=== PATIENT | female | born 1950 | race Caucasian/White ===

== ENCOUNTER 2016-11-23 15:13 | Emergency (ER) | payer BC ==
[2016-11-23] MEDS ORDERED: ONDANSETRON 4 MG ORAL DISINTEGRATING TAB (S0181) As Ordered ONE (16:45)
--- NOTE | 2016-11-23 18:24 | REP ---
CT Head without contrast HISTORY: Head injury COMPARISON: 04/22/2006 There is no intraparenchymal hemorrhage, acute infarct, mass or midline shift. The ventricular system is normal in appearance. There is no extra cerebral collection. There is no fracture. The visualized sinuses are clear. Soft tissue swelling is present over the right parietal bone. IMPRESSION: There is no intracranial lesion. Signed by João Dooley MD 11/23/2016 06:15 P
--- NOTE | 2016-11-23 18:56 | EDDOCDS ---
Nurse's Notes [facility] Name: Julita Potter Age: 65 yrs Sex: Female : 1950 Arrival Date: 11/23/2016 Time: 15:13 Bed TR8 Private MD: Bell Moralez Diagnosis: Unspecified injury of head-ABRASION/CONTUSION;Cervicalgia;Concussion Presentation: 11/23 15:21 Presenting complaint: Patient states: Slipped on ice today at 8am, hit back of head, no dwg LOC, no vomiting. Adult Sepsis Screening: The patient does not have new or worsening altered mentation. Patient's respiratory rate is less than 22. Systolic blood pressure is greater than 100. Patient has a qSOFA score of 0- Negative Sepsis Screen. Suicide/Homicide risk assessment- the patient denies having any suicidal and/or homicidal ideations and does not present with any other emotional, behavioral or mental health complaints. 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 Transition of care: patient was not received from another setting of care. 15:21 Acuity: INGA Level 4 dwg 15:21 Method Of Arrival: Walkin/Carried/Asstd dwg Triage Assessment: 15:24 General: Appears in no apparent distress. Pain: Pain currently is 6 out of 10 on a pain dwg scale. Historical: - Allergies: no known allergies; - Home Meds: 1. duloxetine 30 mg Oral cpDR 1 cap once daily (Last dose: 11/22/2016 20:00) 2. levothyroxine 75 mcg Oral tab 1 tab once daily (Last dose: 11/22/2016 08:00) 3. ranitidine HCl 150 mg Oral tab 1 tab 2 times per day (Last dose: 11/22/2016 17:00) 4. lansoprazole 30 mg oral cpDR 1 cap once daily (Last dose: 11/22/2016 21:00) - PMHx: GERD; Hypothyroidism; Migraines; Seizures; - PSHx: Tubal ligation; - Social history: Smoking status: Patient states former smoker of tobacco. No barriers to communication noted, The patient speaks fluent Montserratian. - Family history: No immediate family members are acutely ill. - : The pt / caregiver states he / she is not on anticoagulants. Home medication list is obtained from the patient. - Exposure Risk Screening:: None identified. Screenin:53 Screening information is obtained from the patient. Fall risk: No risks identified. mb9 Assistance ADL's: requires no assistance with activities of daily living. Abuse/DV Screen: The patient / caregiver reports he/she is: not in a situation that causes fear, pain or injury. Nutritional screening: No deficits noted. Advance Directives: There is no active DNR order. home support is adequate. Assessment: 18:53 General: Appears in no apparent distress, Behavior is appropriate for age, cooperative. mb9 Respiratory: Airway is patent Respiratory effort is even, unlabored. Vital Signs: 15:15 BP 142 / 66; Pulse 84; Resp 18 S; Temp 97.4(O); Pulse Ox 98% on R/A; Weight 52.62 kg gr2 (R); Height 5 ft. 6 in. (167.64 cm) (R); Pain 4/10; 18:42 BP 129 / 66; Pulse 66; Resp 18; Temp 98.8(TE); Pulse Ox 97% on R/A; Pain 8/10; mdr 15:15 Body Mass Index 18.72 (52.62 kg, 167.64 cm) gr2 Vitals: 15:15 Log In Time: November 23, 2016 at 15:15. gr2 ED Course: 15:14 Patient visited by Nehemias Devine. gr2 15:14 Bell Moralez is Private Physician. gr2 15:14 Patient moved to Waiting gr2 15:15 Patient visited by Nehemias Devine. gr2 15:15 Patient moved to Pre RCE gr2 15:22 Triage Initiated dwg 15:54 Patient moved to Triage 2 mb9 16:29 Ebony Matthews PA-C is PHCP. dt4 16:29 Romeo Bardales MD is Attending Physician. dt4 16:30 Patient visited by Ebony Matthews PA-C. dt4 16:47 Patient moved to TR2 srm 16:53 [facility] Payment Agreement was scanned into [employer] and attached to record. gjb 17:02 Patient name changed from Julita\S\\S\Tariq\S\ to Julita\S\ \S\Tariq. EDMS 18:05 PHCP role handed off by Ebony Matthews PA-C ck7 18:05 Rommel Loera RPA-C is PHCP. ck7 18:18 Patient visited by Rommel Loera RPA-C. ck7 18:30 Patient moved to PR1 / 25 mdr 18:43 Patient visited by Candelario Culver PCA. mdr 18:52 Patient moved to TR8 mb9 18:53 The patient / caregiver is instructed regarding the plan of care and ED course. mb9 18:53 No IV's were initiated during this patient's visit. No procedures done that require mb9 assistance. Administered Medications: 16:48 Drug: Ondansetron ODT 4 mg [ondansetron 4 mg disintegrating tablet (1 tabs)] Route: PO; mb9 Order Results: There are currently no results for this order. Outcome: 18:37 Discharge ordered by Provider. ck7 18:53 Discharge Assessment: Patient awake, alert and oriented x 3. No cognitive and/or mb9 functional deficits noted. Patient verbalized understanding of disposition instructions. patient administered narcotics - no. The following High Risk Discharge criteria are identified: None. Discharged to home ambulatory. Condition: good Condition: stable Condition: improved. Discharge instructions given to patient, Instructed on discharge instructions, follow up and referral plans. medication usage, Demonstrated understanding of instructions, medications, Pt was receptive of discharge instructions/ teaching. Prescriptions given X 1, Work note provided to patient. CT Study completed. Property :Personal belongings accompany Pt. 18:55 Patient left the ED. constance9 Signatures: Dispatcher MedHost EDMS Boris Uriarte RN RN dwg Michelson, Staci, RN RN [facility] Rommel Loera RPA-C RPA-Cck7 Nehemias Devine gr2 Ebony Matthews PA-C PA-C dt4 Casey Lynch RN RN mb9 Rick, Mitchell, PCA NEWS WIRE PHOTO OPERATOR Leonor Costello [facility]
--- NOTE | 2016-11-23 18:56 | EDDOCDS ---
Physician Documentation [facility] Name: Julita Potter Age: 65 yrs Sex: Female : 1950 Arrival Date: 11/23/2016 Time: 15:13 Bed TR8 Private MD: Bell Moralez Disposition: 11/23/16 18:37 Discharged to Home/Self Care. Impression: Unspecified injury of head - ABRASION/CONTUSION, Cervicalgia, Concussion. - Condition is Stable. - Discharge Instructions: Concussion, Adult, Head Injury, Adult, Cervical Sprain. - Prescriptions for ZOFRAN ODT 4 mg - dissolve 1 tablet by ORAL route 4 times per day As needed do not chew, do not swallow whole; 10 tablet. - Medication Reconciliation, Local Pharmacy Hours, Work Release Form - 2 day form. - Follow up: Private Physician; When: 1 - 2 days; Reason: Recheck today's complaints, Continuance of care. - Problem is new. - Symptoms have improved. - Notes: USE MEDICATION INSTRUCTED, USE TYLENOL OR MOTRIN FOR PAIN CONTROL, FOLLOW UP WITH YOUR DOCTOR TOMORROW, RETURN TO THE ER IF THE SYMPTOMS WORSEN OR BECOME CONCERNING Historical: - Allergies: no known allergies; - Home Meds: 1. duloxetine 30 mg Oral cpDR 1 cap once daily (Last dose: 11/22/2016 20:00) 2. levothyroxine 75 mcg Oral tab 1 tab once daily (Last dose: 11/22/2016 08:00) 3. ranitidine HCl 150 mg Oral tab 1 tab 2 times per day (Last dose: 11/22/2016 17:00) 4. lansoprazole 30 mg oral cpDR 1 cap once daily (Last dose: 11/22/2016 21:00) - PMHx: GERD; Hypothyroidism; Migraines; Seizures; - PSHx: Tubal ligation; - Social history: Smoking status: Patient states former smoker of tobacco. No barriers to communication noted, The patient speaks fluent Peruvian. - Family history: No immediate family members are acutely ill. - : The pt / caregiver states he / she is not on anticoagulants. Home medication list is obtained from the patient. - Exposure Risk Screening:: None identified. Vital Signs: 11/23 15:15 BP 142 / 66; Pulse 84; Resp 18 S; Temp 97.4(O); Pulse Ox 98% on R/A; Weight 52.62 kg / gr2 116.01 lbs (R); Height 5 ft. 6 in. (167.64 cm) (R); Pain 4/10; 18:42 BP 129 / 66; Pulse 66; Resp 18; Temp 98.8(TE); Pulse Ox 97% on R/A; Pain 8/10; mdr 15:15 Body Mass Index 18.72 (52.62 kg, 167.64 cm) gr2 MDM: 16:43 Ondansetron ODT Oral Disintegrating Tablet 4 mg PO once ordered. dt4 16:44 CT Head Without Contrast Ordered. EDMS 16:44 CT Spine,Cervical W/o Contrast Ordered. EDMS 16:53 [facility] Payment Agreement was scanned into [employer] and attached to record. gjb 16:54 Financial registration complete. gjb Administered Medications: 16:48 Drug: Ondansetron ODT 4 mg [ondansetron 4 mg disintegrating tablet (1 tabs)] Route: PO; mb9 Signatures: Dispatcher [employer] EDMS Boris Uriarte, RN RN dwg Rommel Loera, RPA-C RPA-Cck7 Ebony Matthews PA-C PA-C dt4 Casey LynchRN RN mb9 Leonor Bailey The chart was reviewed and I authenticate all verbal orders and agree with the evaluation and treatment provided.Attachments: 16:53 [facility] [place] Payment Agreement gj MTDD
--- NOTE | 2016-11-23 19:11 | REP ---
CT CERVICAL SPINE WITHOUT CONTRAST: HISTORY: Neck pain. There is no acute fracture or subluxation. Disc bulges are present at the C3-4 through C5-6 levels. There is minimal narrowing of the spinal canal. Facet hypertrophy is present at the C3-4, C4-5 and C7-T1 levels. This produces minimal to mild narrowing of the neural foramina. The C5-6 intervertebral disc is decreased in height consistent disc degeneration. Anterior osteophytes and accessory ossicles are present at the C1-2 level. IMPRESSION: 1. There is no acute fracture or subluxation. 2. There is cervical spondylosis at the C3-4 through C5-6 and C7-T11 levels. Signed by João Doolye MD 11/23/2016 07:27 P
--- NOTE | 2016-11-25 19:56 | EDDOCDS ---
Physician Documentation [facility] Name: Julita Potter Age: 65 yrs Sex: Female : 1950 Arrival Date: 11/23/2016 Time: 15:13 Bed TR8 Private MD: Bell Moralez Disposition: 11/23/16 18:37 Discharged to Home/Self Care. Impression: Unspecified injury of head - ABRASION/CONTUSION, Cervicalgia, Concussion. - Condition is Stable. - Discharge Instructions: Concussion, Adult, Head Injury, Adult, Cervical Sprain. - Prescriptions for ZOFRAN ODT 4 mg - dissolve 1 tablet by ORAL route 4 times per day As needed do not chew, do not swallow whole; 10 tablet. - Medication Reconciliation, Local Pharmacy Hours, Work Release Form - 2 day form. - Follow up: Private Physician; When: 1 - 2 days; Reason: Recheck today's complaints, Continuance of care. - Problem is new. - Symptoms have improved. - Notes: USE MEDICATION INSTRUCTED, USE TYLENOL OR MOTRIN FOR PAIN CONTROL, FOLLOW UP WITH YOUR DOCTOR TOMORROW, RETURN TO THE ER IF THE SYMPTOMS WORSEN OR BECOME CONCERNING Historical: - Allergies: no known allergies; - Home Meds: 1. duloxetine 30 mg Oral cpDR 1 cap once daily (Last dose: 11/22/2016 20:00) 2. levothyroxine 75 mcg Oral tab 1 tab once daily (Last dose: 11/22/2016 08:00) 3. ranitidine HCl 150 mg Oral tab 1 tab 2 times per day (Last dose: 11/22/2016 17:00) 4. lansoprazole 30 mg oral cpDR 1 cap once daily (Last dose: 11/22/2016 21:00) - PMHx: GERD; Hypothyroidism; Migraines; Seizures; - PSHx: Tubal ligation; - Social history: Smoking status: Patient states former smoker of tobacco. No barriers to communication noted, The patient speaks fluent Tunisian. - Family history: No immediate family members are acutely ill. - : The pt / caregiver states he / she is not on anticoagulants. Home medication list is obtained from the patient. - Exposure Risk Screening:: None identified. Vital Signs: 11/23 15:15 BP 142 / 66; Pulse 84; Resp 18 S; Temp 97.4(O); Pulse Ox 98% on R/A; Weight 52.62 kg / gr2 116.01 lbs (R); Height 5 ft. 6 in. (167.64 cm) (R); Pain 4/10; 18:42 BP 129 / 66; Pulse 66; Resp 18; Temp 98.8(TE); Pulse Ox 97% on R/A; Pain 8/10; mdr 15:15 Body Mass Index 18.72 (52.62 kg, 167.64 cm) gr2 MDM: 16:43 Ondansetron ODT Oral Disintegrating Tablet 4 mg PO once ordered. dt4 16:44 CT Head Without Contrast Ordered. EDMS 16:44 CT Spine,Cervical W/o Contrast Ordered. EDMS 16:53 [facility] Payment Agreement was scanned into [employer] and attached to record. gjb 16:54 Financial registration complete. [facility] 11/24 12:02 T-Sheet-- Draft Copy was scanned into [employer] and attached to record. gb Administered Medications: 11/23 16:48 Drug: Ondansetron ODT 4 mg [ondansetron 4 mg disintegrating tablet (1 tabs)] Route: PO; mb9 Signatures: Dispatcher MedHost EDMS Boris Uriarte, KAPIL RN Melany Baeza, Reg Reg gb Rommel Loera, RPA-C RPA-Cck7 Ebony Matthews PA-C PASujata dt4 Casey Lynch RN RN mb9 Leonor Bailey liza The chart was reviewed and I authenticate all verbal orders and agree with the evaluation and treatment provided.Attachments: 16:53 [facility] Payment Agreement [facility] 11/24 12:02 T-Sheet-- Draft Copy gb Chart Complete MTDD
--- NOTE | 2016-11-25 19:56 | EDDOCDS ---
Nurse's Notes [facility] Name: Julita Potter Age: 65 yrs Sex: Female : 1950 Arrival Date: 11/23/2016 Time: 15:13 Bed TR8 Private MD: Bell Moralez Diagnosis: Unspecified injury of head-ABRASION/CONTUSION;Cervicalgia;Concussion Presentation: 11/23 15:21 Presenting complaint: Patient states: Slipped on ice today at 8am, hit back of head, no dwg LOC, no vomiting. Adult Sepsis Screening: The patient does not have new or worsening altered mentation. Patient's respiratory rate is less than 22. Systolic blood pressure is greater than 100. Patient has a qSOFA score of 0- Negative Sepsis Screen. Suicide/Homicide risk assessment- the patient denies having any suicidal and/or homicidal ideations and does not present with any other emotional, behavioral or mental health complaints. 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 Transition of care: patient was not received from another setting of care. 15:21 Acuity: INGA Level 4 dwg 15:21 Method Of Arrival: Walkin/Carried/Asstd dwg Triage Assessment: 15:24 General: Appears in no apparent distress. Pain: Pain currently is 6 out of 10 on a pain dwg scale. Historical: - Allergies: no known allergies; - Home Meds: 1. duloxetine 30 mg Oral cpDR 1 cap once daily (Last dose: 11/22/2016 20:00) 2. levothyroxine 75 mcg Oral tab 1 tab once daily (Last dose: 11/22/2016 08:00) 3. ranitidine HCl 150 mg Oral tab 1 tab 2 times per day (Last dose: 11/22/2016 17:00) 4. lansoprazole 30 mg oral cpDR 1 cap once daily (Last dose: 11/22/2016 21:00) - PMHx: GERD; Hypothyroidism; Migraines; Seizures; - PSHx: Tubal ligation; - Social history: Smoking status: Patient states former smoker of tobacco. No barriers to communication noted, The patient speaks fluent Uzbek. - Family history: No immediate family members are acutely ill. - : The pt / caregiver states he / she is not on anticoagulants. Home medication list is obtained from the patient. - Exposure Risk Screening:: None identified. Screenin:53 Screening information is obtained from the patient. Fall risk: No risks identified. mb9 Assistance ADL's: requires no assistance with activities of daily living. Abuse/DV Screen: The patient / caregiver reports he/she is: not in a situation that causes fear, pain or injury. Nutritional screening: No deficits noted. Advance Directives: There is no active DNR order. home support is adequate. Assessment: 18:53 General: Appears in no apparent distress, Behavior is appropriate for age, cooperative. mb9 Respiratory: Airway is patent Respiratory effort is even, unlabored. Vital Signs: 15:15 BP 142 / 66; Pulse 84; Resp 18 S; Temp 97.4(O); Pulse Ox 98% on R/A; Weight 52.62 kg gr2 (R); Height 5 ft. 6 in. (167.64 cm) (R); Pain 4/10; 18:42 BP 129 / 66; Pulse 66; Resp 18; Temp 98.8(TE); Pulse Ox 97% on R/A; Pain 8/10; mdr 15:15 Body Mass Index 18.72 (52.62 kg, 167.64 cm) gr2 Vitals: 15:15 Log In Time: November 23, 2016 at 15:15. gr2 ED Course: 15:14 Patient visited by Nehemias Devine. gr2 15:14 Bell Moralez is Private Physician. gr2 15:14 Patient moved to Waiting gr2 15:15 Patient visited by Nehemias Devine. gr2 15:15 Patient moved to Pre RCE gr2 15:22 Triage Initiated dwg 15:54 Patient moved to Triage 2 mb9 16:29 Ebony Matthews PA-C is PHCP. dt4 16:29 Romeo Bardales MD is Attending Physician. dt4 16:30 Patient visited by Ebony Matthews PA-C. dt4 16:47 Patient moved to TR2 srm 16:53 [facility] Payment Agreement was scanned into [employer] and attached to record. gjb 17:02 Patient name changed from Julita\S\\S\Tariq\S\ to Julita\S\ \S\Tariq. EDMS 18:05 PHCP role handed off by Ebony Matthews PA-C ck7 18:05 Rommel Loera RPA-C is PHCP. ck7 18:18 Patient visited by Rommel Loera RPA-C. ck7 18:30 Patient moved to PR1 / 25 mdr 18:43 Patient visited by Candelario Culver PCA. mdr 18:52 Patient moved to TR8 mb9 18:53 The patient / caregiver is instructed regarding the plan of care and ED course. mb9 18:53 No IV's were initiated during this patient's visit. No procedures done that require mb9 assistance. 19:18 CT Head Without Contrast Returned. EDMS 19:18 CT Spine,Cervical W/o Contrast Returned. EDMS 11/24 12:02 T-Sheet-- Draft Copy was scanned into [employer] and attached to record. gb Administered Medications: 11/23 16:48 Drug: Ondansetron ODT 4 mg [ondansetron 4 mg disintegrating tablet (1 tabs)] Route: PO; mb9 Order Results: Radiology Order: CT Head Without Contrast Test: CT Head Without Contrast REASON FOR EXAMINATION: head injury; CT Head without contrast; ; HISTORY: Head injury; ; COMPARISON: 04/22/2006; ; There is no intraparenchymal hemorrhage, acute infarct, mass or midline shift.; The ventricular system is normal in appearance. There is no extra cerebral; collection. There is no fracture. The visualized sinuses are clear. Soft tissue; swelling is present over the right parietal bone.; ; IMPRESSION: There is no intracranial lesion.; ; ; ; ; Signed by; João Dooley MD 11/23/2016 06:15 P; Radiology Order: CT Spine,Cervical W/o Contrast Test: CT Spine,Cervical W/o Contrast REASON FOR EXAMINATION: head injury, neck pain; CT CERVICAL SPINE WITHOUT CONTRAST:; ; HISTORY: Neck pain.; ; There is no acute fracture or subluxation.; ; Disc bulges are present at the C3-4 through C5-6 levels. There is minimal; narrowing of the spinal canal. Facet hypertrophy is present at the C3-4, C4-5 and; C7-T1 levels. This produces minimal to mild narrowing of the neural foramina.; The C5-6 intervertebral disc is decreased in height consistent disc degeneration.; Anterior osteophytes and accessory ossicles are present at the C1-2 level.; ; IMPRESSION:; ; 1. There is no acute fracture or subluxation.; ; 2. There is cervical spondylosis at the C3-4 through C5-6 and C7-T11 levels.; ; ; Signed by; João Dooley MD 11/23/2016 07:27 P; Outcome: 18:37 Discharge ordered by Provider. ck7 18:53 Discharge Assessment: Patient awake, alert and oriented x 3. No cognitive and/or mb9 functional deficits noted. Patient verbalized understanding of disposition instructions. patient administered narcotics - no. The following High Risk Discharge criteria are identified: None. Discharged to home ambulatory. Condition: good Condition: stable Condition: improved. Discharge instructions given to patient, Instructed on discharge instructions, follow up and referral plans. medication usage, Demonstrated understanding of instructions, medications, Pt was receptive of discharge instructions/ teaching. Prescriptions given X 1, Work note provided to patient. CT Study completed. Property :Personal belongings accompany Pt. 18:55 Patient left the ED. constance9 Signatures: Dispatcher MedHost EDBoris Koch, RN Candis Bro RN RN [facility] Efe, Melany, Reg Reg gb Evaristo, Rommel, RPA-C RPA-Cck7 Nehemias Devine gr2 Ebony Matthews PA-C PASujata dt4 Casey Lynch,RN RN mb9 Candelario Culver, Leonor Rios Chart Complete MTDD
--- NOTE | 2016-11-25 19:56 | EDDOCDS ---
Physician Documentation [facility] Name: Julita Potter Age: 65 yrs Sex: Female : 1950 Arrival Date: 11/23/2016 Time: 15:13 Bed TR8 Private MD: Bell Moralez Disposition: 11/23/16 18:37 Discharged to Home/Self Care. Impression: Unspecified injury of head - ABRASION/CONTUSION, Cervicalgia, Concussion. - Condition is Stable. - Discharge Instructions: Concussion, Adult, Head Injury, Adult, Cervical Sprain. - Prescriptions for ZOFRAN ODT 4 mg - dissolve 1 tablet by ORAL route 4 times per day As needed do not chew, do not swallow whole; 10 tablet. - Medication Reconciliation, Local Pharmacy Hours, Work Release Form - 2 day form. - Follow up: Private Physician; When: 1 - 2 days; Reason: Recheck today's complaints, Continuance of care. - Problem is new. - Symptoms have improved. - Notes: USE MEDICATION INSTRUCTED, USE TYLENOL OR MOTRIN FOR PAIN CONTROL, FOLLOW UP WITH YOUR DOCTOR TOMORROW, RETURN TO THE ER IF THE SYMPTOMS WORSEN OR BECOME CONCERNING Historical: - Allergies: no known allergies; - Home Meds: 1. duloxetine 30 mg Oral cpDR 1 cap once daily (Last dose: 11/22/2016 20:00) 2. levothyroxine 75 mcg Oral tab 1 tab once daily (Last dose: 11/22/2016 08:00) 3. ranitidine HCl 150 mg Oral tab 1 tab 2 times per day (Last dose: 11/22/2016 17:00) 4. lansoprazole 30 mg oral cpDR 1 cap once daily (Last dose: 11/22/2016 21:00) - PMHx: GERD; Hypothyroidism; Migraines; Seizures; - PSHx: Tubal ligation; - Social history: Smoking status: Patient states former smoker of tobacco. No barriers to communication noted, The patient speaks fluent Sierra Leonean. - Family history: No immediate family members are acutely ill. - : The pt / caregiver states he / she is not on anticoagulants. Home medication list is obtained from the patient. - Exposure Risk Screening:: None identified. Vital Signs: 11/23 15:15 BP 142 / 66; Pulse 84; Resp 18 S; Temp 97.4(O); Pulse Ox 98% on R/A; Weight 52.62 kg / gr2 116.01 lbs (R); Height 5 ft. 6 in. (167.64 cm) (R); Pain 4/10; 18:42 BP 129 / 66; Pulse 66; Resp 18; Temp 98.8(TE); Pulse Ox 97% on R/A; Pain 8/10; mdr 15:15 Body Mass Index 18.72 (52.62 kg, 167.64 cm) gr2 MDM: 16:43 Ondansetron ODT Oral Disintegrating Tablet 4 mg PO once ordered. dt4 16:44 CT Head Without Contrast Ordered. EDMS 16:44 CT Spine,Cervical W/o Contrast Ordered. EDMS 16:53 [facility] Payment Agreement was scanned into [employer] and attached to record. gjb 16:54 Financial registration complete. [facility] 11/24 12:02 T-Sheet-- Draft Copy was scanned into [employer] and attached to record. gb Administered Medications: 11/23 16:48 Drug: Ondansetron ODT 4 mg [ondansetron 4 mg disintegrating tablet (1 tabs)] Route: PO; mb9 Signatures: Dispatcher MedHost EDMS Boris Uriarte, KAPIL RN Melany Baeza, Reg Reg gb Rommel Loera, RPA-C RPA-Cck7 Ebony Matthews PA-C PASujata dt4 Casey Lynch RN RN mb9 Leonor Bailey liza The chart was reviewed and I authenticate all verbal orders and agree with the evaluation and treatment provided.Attachments: 16:53 [facility] Payment Agreement [facility] 11/24 12:02 T-Sheet-- Draft Copy gb Chart Complete MTDD
== END 2016-11-23 18:55 | disposition home or self-care (01) ==
LOC: M ED 15:13
DX: S09.90XA Unspecified injury of head, initial encounter (principal); W00.0XXA Fall on same level due to ice and snow, initial encounter; Y92.018 Other place in single-family (private) house as the place of occurrence of the external cause; Y93.89 Activity, other specified; Y99.8 Other external cause status; M54.2 Cervicalgia; K21.9 Gastro-esophageal reflux disease without esophagitis; E03.9 Hypothyroidism, unspecified; G43.909 Migraine, unspecified, not intractable, without status migrainosus; R56.9 Unspecified convulsions; Z79.899 Other long term (current) drug therapy; Z79.52 Long term (current) use of systemic steroids; Z87.891 Personal history of nicotine dependence

== ENCOUNTER → 2017-03-14 | Outpatient (REF) | payer BC ==
[2017-03-17 00:07] LABS: SJOGREN'S ANTI SS-A <0.2 AI (0.0-0.9); SJOGREN'S ANTI SS-B <0.2 AI (0.0-0.9)
== END ==
LOC: M LABNEURO 16:53
PROVIDERS: ATTEND Psychiatry & Neurology Neurology
DX: G45.9 Transient cerebral ischemic attack, unspecified (principal)

== ENCOUNTER → 2019-08-23 | Outpatient (CLI) | payer BC ==
--- NOTE | 2019-08-23 18:31 | REP ---
Four views left wrist: 08/23/2019. Indication: Left wrist trauma. Comparison: None. Findings: There is a minimally displaced tiny avulsion fracture of the proximal first metacarpal which does extend into the first carpal metacarpal joint. No additional fractures are present. Bony alignment is otherwise unremarkable. Impression: Tiny avulsion fracture of the proximal first metacarpal. Please correlate with exam. Electronically Signed by Aydin Love DO 08/23/2019 06:21 P
== END ==
LOC: M WUC 17:54
PROVIDERS: ATTEND Physician Assistant
DX: M25.532 Pain in left wrist (principal)

== ENCOUNTER → 2019-09-29 | Outpatient (REF) | payer BC | LOC: M LAB REF 10:19 | PROVIDERS: ATTEND Physician Assistant | DX: R10.30 Lower abdominal pain, unspecified (principal) ==

== ENCOUNTER → 2021-10-12 | Outpatient (CLI) | payer MEDICARE ==
[~2021-10-12] MED LIST: E-Z-GAS II EFFERVESCENT PACKET (SODIUM BICARB./CITRIC ACID/SIMETHICONE) As Ordered ONE; E-Z-HD 98% w/w 340GM SUSP BTL As Ordered ONE; E-Z-PAQUE 96% w/w SUSP 176GM BTL As Ordered ONE
--- NOTE | 2021-10-12 17:28 | REP ---
INDICATION: DYSPHAGIA. TECHNIQUE: This procedure was performed by DIEGO Garcia, under the direct supervision of Dr. Allison. Images were reviewed with Dr. Allison prior to dictation. Liquid barium and gas producing crystals were given in the erect position, as well as liquid barium in the prone oblique position in order to perform a double contrast esophagram examination. FINDINGS: A single view PA chest x-ray is submitted as a heel sander rubber film. The superior mediastinal structures are midline. The heart size is within normal limits. The lungs are clear. The oral and pharyngeal stages of deglutition were unremarkable. Esophageal transport is prompt and efficient and there is no evidence of esophagitis, stricture, or mucosal ring. There is no evidence of a hiatal hernia. Gastroesophageal reflux was observed to below the level of amy. IMPRESSION: Gastroesophageal reflux to below the level of the amy, otherwise unremarkable esophagram. 0.8 minutes of fluoroscopy time was utilized for this procedure. Some fluoroscopic images are performed with last image hold technology. These images require no additional radiation. <Electronically signed by Mya Michaud > 10/12/21 1706 <Electronically signed by Boris Allison > 10/12/21 9700
== END ==
LOC: M RAD 09:46
PROVIDERS: ATTEND Physician Assistant Medical
DX: R13.10 Dysphagia, unspecified (principal)

== ENCOUNTER → 2021-12-14 | Outpatient (REF) | LOC: M LABSMTC 10:26 | PROVIDERS: ATTEND Pediatrics | DX: Z20.822 Contact with and (suspected) exposure to COVID-19 (principal) ==

== ENCOUNTER → 2021-12-24 | Outpatient (CLI) | payer MEDICARE | LOC: M LABSMTC 09:13 | DX: Z01.818 Encounter for other preprocedural examination (principal); Z11.52 Encounter for screening for COVID-19 ==

== ENCOUNTER → 2022-07-05 | Outpatient (CLI) | payer MEDICARE | LOC: M PLAIMG 13:31 | PROVIDERS: ATTEND Physician Assistant | DX: S62.501A Fracture of unspecified phalanx of right thumb, initial encounter for closed fracture (principal); X58.XXXA Exposure to other specified factors, initial encounter; Y92.9 Unspecified place or not applicable ==

== ENCOUNTER → 2022-07-16 | Outpatient (CLI) | payer MEDICARE ==
[2022-07-16 13:47] LABS: BLOOD UREA NITROGEN 17 MG/DL (7-18); CALCIUM LEVEL 9.4 MG/DL (8.8-10.2); CARBON DIOXIDE LEVEL 29 MEQ/L (21-32); CHLORIDE LEVEL 108 MEQ/L (98-107); CREATININE FOR GFR 0.79 MG/DL (0.55-1.30); GLOMERULAR FILTRATION RATE > 60.0 (>39); GLUCOSE, FASTING 83 MG/DL (70-100); POTASSIUM SERUM 5.3 MEQ/L (3.5-5.1); SODIUM LEVEL 138 MEQ/L (136-145)
== END ==
LOC: M LAB 10:44
PROVIDERS: ATTEND Physician Assistant
DX: S37.001A Unspecified injury of right kidney, initial encounter (principal)

== ENCOUNTER → 2022-07-21 | Outpatient (CLI) | payer MEDICARE ==
[~2022-07-21] MED LIST changes: -E-Z-GAS II EFFERVESCENT PACKET (SODIUM BICARB./CITRIC ACID/SIMETHICONE) As Ordered ONE; -E-Z-HD 98% w/w 340GM SUSP BTL As Ordered ONE; -E-Z-PAQUE 96% w/w SUSP 176GM BTL As Ordered ONE; +ISOVUE-370 76% 100ML VIAL As Ordered ONE
== END ==
LOC: M RAD 13:27
PROVIDERS: ATTEND Physician Assistant
DX: S37.001A Unspecified injury of right kidney, initial encounter (principal)
CPT/HCPCS: 74160; Q9967

== ENCOUNTER → 2022-09-23 | Outpatient (CLI) | payer MEDICARE | LOC: M RAD 13:13 | PROVIDERS: ATTEND Physician Assistant | DX: S37.001 Unspecified injury of right kidney (principal); N28.1 Cyst of kidney, acquired ==

== ENCOUNTER → 2023-06-10 | Outpatient (CLI) | payer MEDICARE ==
[2023-06-10 14:52] LABS: BASO # 0.1 10^3/uL (0.0-0.2); BASO % 1.4 % (0.0-1.0); EOS # 0.2 10^3/uL (0.0-0.5); EOS % 3.3 % (0.0-3.0); HEMATOCRIT 43.4 % (36.0-47.0); HEMOGLOBIN 13.8 g/dl (12.0-15.5); LYMPH # 1.5 10^3/uL (1.5-5.0); MEAN CORPUSCULAR HEMOGLOBIN 29.4 pg (27.0-33.0); MEAN CORPUSCULAR HGB CONC 31.8 g/dl (32.0-36.5); MEAN CORPUSCULAR VOLUME 92.5 fl (80.0-96.0); MONO # 0.5 10^3/uL (0.0-0.8); MONO % 9.1 % (2.0-8.0); NEUTROPHILS # 2.9 10^3/uL (1.5-8.5); NEUTROPHILS % 56.8 % (36.0-66.0); PLATELET COUNT, AUTOMATED 207 10^3/uL (150-450); RED BLOOD COUNT 4.69 10^6/uL (4.00-5.40); WHITE BLOOD COUNT 5.1 10^3/uL (4.0-10.0)
[2023-06-10 15:24] LABS: ALBUMIN 3.7 G/DL (3.2-5.2); ALKALINE PHOSPHATASE 93 U/L (46-116); ALT/SGPT 20 U/L (7.0-40); AST/SGOT 21 U/L (<34); BILIRUBIN,TOTAL 0.5 MG/DL (0.3-1.2); BLOOD UREA NITROGEN 15 MG/DL (9-23); CALCIUM LEVEL 9.1 MG/DL (8.3-10.6); CARBON DIOXIDE LEVEL 26 MMOL/L (20-31); CHLORIDE LEVEL 108 MMOL/L (98-107); CHOLESTEROL LEVEL 211 MG/DL (<200); CREATININE FOR GFR 0.79 MG/DL (0.55-1.30); GLOMERULAR FILTRATION RATE > 60.0 (>39); GLUCOSE, FASTING 87 MG/DL (74-106); POTASSIUM SERUM 4.2 MMOL/L (3.5-5.1); SODIUM LEVEL 143 MMOL/L (136-145); TOTAL PROTEIN 6.5 G/DL (5.7-8.2); TRIGLYCERIDES LEVEL 90 MG/DL (<150)
[2023-06-10 15:25] LABS: FREE T4 0.94 NG/DL (0.89-1.76); THYROID STIMULATING HORMONE 3.045 uIU/ML (0.55-4.78)
[2023-06-10 15:26] LABS: TOTAL 25(OH) VITAMIN D 26.4 NG/ML (20.0-100.0)
[2023-06-10 15:49] LABS: ERYTHROCYTE SEDIMENTATION RATE 9 mm/hr (0-30)
[2023-06-10 19:19] LABS: C REACTIVE PROTEIN QUANTITATIV < 0.40 MG/DL (<1.0)
== END ==
LOC: M LAB 14:08
PROVIDERS: ATTEND Nurse Practitioner Adult Health
DX: E03.9 Hypothyroidism, unspecified (principal); E55.9 Vitamin D deficiency, unspecified; I10 Essential (primary) hypertension; E78.5 Hyperlipidemia, unspecified; M06.9 Rheumatoid arthritis, unspecified

== ENCOUNTER → 2023-07-12 | Outpatient (CLI) | payer MEDICARE | LOC: M PLAIMG 15:38 | PROVIDERS: ATTEND Nurse Practitioner Adult Health | DX: K59.01 Slow transit constipation (principal) ==

== ENCOUNTER → 2024-01-06 | Outpatient (REF) | payer MEDICARE ==
[2024-01-06 15:18] LABS: BASO # 0.1 10^3/uL (0.0-0.2); BASO % 1.5 % (0.0-1.0); EOS # 0.1 10^3/uL (0.0-0.5); EOS % 2.7 % (0.0-3.0); HEMATOCRIT 43.6 % (36.0-47.0); LYMPH # 1.3 10^3/uL (1.5-5.0); LYMPH % 24.3 % (24.0-44.0); MEAN CORPUSCULAR HEMOGLOBIN 30.4 pg (27.0-33.0); MEAN CORPUSCULAR HGB CONC 32.1 g/dl (32.0-36.5); MEAN CORPUSCULAR VOLUME 94.6 fl (80.0-96.0); MONO # 0.4 10^3/uL (0.0-0.8); MONO % 8.3 % (2.0-8.0); NEUTROPHILS # 3.3 10^3/uL (1.5-8.5); NEUTROPHILS % 62.8 % (36.0-66.0); PLATELET COUNT, AUTOMATED 226 10^3/uL (150-450); RED BLOOD COUNT 4.61 10^6/uL (4.00-5.40); WHITE BLOOD COUNT 5.3 10^3/uL (4.0-10.0)
[2024-01-06 15:34] LABS: ALBUMIN 3.5 G/DL (3.2-5.2); ALKALINE PHOSPHATASE 97 U/L (46-116); ALT/SGPT 17 U/L (7.0-40); AST/SGOT 19 U/L (<34); BILIRUBIN,TOTAL 0.4 MG/DL (0.3-1.2); BLOOD UREA NITROGEN 16 MG/DL (9-23); CALCIUM LEVEL 8.9 MG/DL (8.3-10.6); CARBON DIOXIDE LEVEL 28 MMOL/L (20-31); CHLORIDE LEVEL 108 MMOL/L (98-107); CHOLESTEROL LEVEL 223 MG/DL (<200); CHOLESTEROL RISK RATIO 4.09 (<5); FREE T4 0.92 NG/DL (0.89-1.76); GLOMERULAR FILTRATION RATE > 60.0 (>39); GLUCOSE, FASTING 79 MG/DL (74-106); HDL CHOLESTEROL 54.5 MG/DL (>40); LDL CHOLESTEROL 149.7 MG/DL (<100); NON-HDL-C 168.5 MG/DL; POTASSIUM SERUM 4.5 MMOL/L (3.5-5.1); SODIUM LEVEL 141 MMOL/L (136-145); THYROID STIMULATING HORMONE 4.127 uIU/ML (0.55-4.78); TOTAL PROTEIN 6.5 G/DL (5.7-8.2); TRIGLYCERIDES LEVEL 94 MG/DL (<150)
[2024-01-06 15:35] LABS: TOTAL 25(OH) VITAMIN D 24.6 NG/ML (20.0-100.0)
== END ==
LOC: M LABDRWAD 13:23
PROVIDERS: ATTEND Nurse Practitioner Adult Health
DX: E78.5 Hyperlipidemia, unspecified (principal); E03.9 Hypothyroidism, unspecified; M06.9 Rheumatoid arthritis, unspecified; Z79.899 Other long term (current) drug therapy

== ENCOUNTER → 2024-07-14 | Outpatient (CLI) | payer MEDICARE ==
[2024-07-14 13:05] LABS: BASO # 0.1 10^3/uL (0.0-0.2); BASO % 1.3 % (0.0-1.0); EOS # 0.2 10^3/uL (0.0-0.5); HEMOGLOBIN 14.2 g/dl (12.0-15.5); LYMPH # 1.5 10^3/uL (1.5-5.0); LYMPH % 24.4 % (24.0-44.0); MEAN CORPUSCULAR HEMOGLOBIN 30.5 pg (27.0-33.0); MEAN CORPUSCULAR HGB CONC 32.3 g/dl (32.0-36.5); MEAN CORPUSCULAR VOLUME 94.6 fl (80.0-96.0); MONO # 0.5 10^3/uL (0.0-0.8); MONO % 7.6 % (2.0-8.0); NEUTROPHILS # 3.8 10^3/uL (1.5-8.5); NEUTROPHILS % 62.2 % (36.0-66.0); PLATELET COUNT, AUTOMATED 194 10^3/uL (150-450); RED BLOOD COUNT 4.65 10^6/uL (4.00-5.40); WHITE BLOOD COUNT 6.1 10^3/uL (4.0-10.0)
[2024-07-14 13:41] LABS: ALBUMIN 3.5 G/DL (3.2-5.2); ALKALINE PHOSPHATASE 102 U/L (46-116); ALT/SGPT 19 U/L (7.0-40); AST/SGOT 21 U/L (<34); BILIRUBIN,TOTAL 0.4 MG/DL (0.3-1.2); BLOOD UREA NITROGEN 17 MG/DL (9-23); CALCIUM LEVEL 8.9 MG/DL (8.3-10.6); CARBON DIOXIDE LEVEL 29 MMOL/L (20-31); CHLORIDE LEVEL 108 MMOL/L (98-107); CHOLESTEROL LEVEL 219 MG/DL (<200); CHOLESTEROL RISK RATIO 4.21 (<5); CREATININE FOR GFR 0.72 MG/DL (0.55-1.30); GLOMERULAR FILTRATION RATE > 60.0 (>39); GLUCOSE, FASTING 85 MG/DL (74-106); LDL CHOLESTEROL 149.2 MG/DL (<100); SODIUM LEVEL 139 MMOL/L (136-145); TOTAL PROTEIN 6.7 G/DL (5.7-8.2); TRIGLYCERIDES LEVEL 89 MG/DL (<150)
[2024-07-14 13:42] LABS: TOTAL 25(OH) VITAMIN D 26.2 NG/ML (20.0-100.0)
[2024-07-14 13:43] LABS: FREE T4 1.08 NG/DL (0.89-1.76); THYROID STIMULATING HORMONE 2.725 uIU/ML (0.55-4.78)
== END ==
LOC: M LAB 12:20
PROVIDERS: ATTEND Family Medicine
DX: I10 Essential (primary) hypertension (principal); E78.5 Hyperlipidemia, unspecified; E03.9 Hypothyroidism, unspecified; M06.9 Rheumatoid arthritis, unspecified; E55.9 Vitamin D deficiency, unspecified